=== PATIENT | female | born 1955 | race Caucasian/White ===

== ENCOUNTER 2019-04-26 12:14 | Observation (INO) ==
[2019-04-26] MEDS ORDERED: Prochlorperazine 10 MG/2 ML VIAL IVP ONE (12:24)
--- NOTE | 2019-04-26 12:56 | Emergency Department Note ---
Disposition Clinical Impression: Hypertension Qualifiers: Hypertension type: unspecified Qualified Code(s): I10 - Essential (primary) hypertension Headache Qualifiers: Headache type: unspecified Headache chronicity pattern: unspecified pattern Intractability: not intractable Qualified Code(s): R51 - Headache Chest pain Qualifiers: Chest pain type: unspecified Qualified Code(s): R07.9 - Chest pain, unspecified Disposition: Admitted As Inpatient Condition: Good Instructions: Hypertension (ED), General Headache (ED) [facility] - 04/27/19 Forms: ED Satisfaction Letter, Work/School Release Time of Disposition: 17:19 General Adult HPI - General Chief complaint: ED General Medical Stated complaint: hypertension Time Seen by Provider: 04/26/19 12:21 Source: patient, EMS Mode of arrival: EMS Limitations: no limitations Nursing Notes Reviewed: Yes Vital Signs Reviewed: Yes - History of Present Illness HPI Narrative: Patient is a 63-year-old female with past medical history including anxiety and hypertension, presenting with a chief complaint of elevated blood pressures. Patient states she is on multiple blood pressure medications and her hypertension is managed by her primary care physician. She states she had an appointment today however she did not have transportation to take her to her appointment. She states for the past 5 days she complains of intermittent generalized pounding headaches. She complains of occasional blurred vision and substernal chest pressure. She states the chest pain is substernal and radiates into her back and associated with shortness of breath. She states she has been taking her blood pressure every day and it has been elevated. She states today, her systolic blood pressure was elevated greater than 200. She complains of a headache, substernal chest pressure and blurred vision at this time. She denies any shortness of breath, nausea or vomiting, abdominal pain, extremity weakness or numbness, slurred speech, facial droop. Tylenol has not been helping her headache. Pain Scale: 7 - Related Data Home Medications Medication Instructions Recorded Confirmed Methocarbamol [Robaxin-750] 750 mg PO QID 05/13/16 07/16/16 Metoprolol [Lopressor] 25 mg PO BID 05/13/16 07/16/16 cloNIDine HCl [CloNIDine HCl] 0.1 mg PO BID 05/13/16 07/16/16 clonazePAM [Clonazepam] 1 mg PO TID 05/13/16 07/16/16 traMADol [Ultram] 100 mg PO TID 05/13/16 07/16/16 Previous Rx's Medication Instructions Recorded Aspirin 81 mg PO DAILY 30 Days tab.chew 05/15/16 Losartan [Cozaar] 100 mg PO DAILY #30 tablet 07/19/16 OxyCODONE/APAP 5/325 [Percocet 1 each PO Q6HR PRN #14 tablet 07/19/16 5/325 MG] hydrALAZINE [HydrALAZINE] 50 mg PO Q8HR #60 tablet 07/19/16 Naproxen [Naprosyn] 500 mg PO BID 3 Days tablet 07/24/16 predniSONE [PredniSONE] 5 mg PO DAILY 6 Days tablet 07/24/16 Benzonatate [Tessalon] 100 mg PO TID 7 Days capsule 01/24/17 Allergies Allergy/AdvReac Type Severity Reaction Status Date / Time ketorolac [From Toradol] Allergy Rash Verified 12/20/16 10:18 Penicillins [PCN] Allergy See Verified 07/16/16 17:30 Comments Sulfa (Sulfonamide Allergy See Verified 07/16/16 17:30 Antibiotics) Comments All systems ED: reviewed and negative except as stated. Review of Systems: As Per HPI Constitutional: Denies: fever, chills Eyes: Reports: vision change ENT ED: Denies: congestion Cardiovascular: Reports: chest pain. Denies: palpitations Respiratory: Denies: cough, dyspnea Gastrointestinal: Denies: abdominal pain, nausea, vomiting Genitourinary: Denies: dysuria Musculoskeletal: Denies: back pain Neurological: Reports: headache. Denies: weakness, numbness, paresthesias, confusion, abnormal gait Past Medical History - Past Medical History Attestation: Yes The following information was validated with the patient. Source: patient Medical history: Reports: hypertension Surgical history: Reports: hysterectomy, orthopedic, other, sinus surgery, other Psychiatric history: Reports: anxiety, depression, previous psychiatric hospitalization, other - Social History Smoking Status: Current every day smoker Smokeless Tobacco Status: No Alcohol use: Reports: occasionally Drug use: Reports: none Physical Exam - General Limitations: no limitations General appearance: alert, in no apparent distress - Head Head exam: atraumatic, normocephalic, normal inspection - Eye Eye exam: Present: normal appearance, EOMI - ENT ENT exam: normal exam, normal oropharynx - Neck Neck exam: Present: normal inspection, trachea midline - Chest Chest inspection: Present: normal inspection, symmetric chest wall rise - Respiratory Respiratory exam: Present: normal lung sounds bilaterally. Absent: respiratory distress, wheezes - Cardiovascular Cardiovascular exam: Present: regular rate, normal rhythm, normal heart sounds, other (bilateral radial pulses and dorsalis pedis pulses equal) - Abdominal Exam Abdominal exam: Present: soft, Non-Tender, normal bowel sounds. Absent: distention, guarding, rebound, rigidity - Extremities Exam Extremities exam: Present: normal capillary refill. Absent: pedal edema, calf tenderness - Neurological Exam Neurological exam: Present: alert, oriented X3, CN II-XII intact, normal gait. Absent: motor sensory deficit - Expanded Neurological Exam Speech: Present: fluid speech Cerebellar function: finger to nose: Normal Motor strength - LUE: 5/5 Motor strength - RUE: 5/5 Motor strength - LLE: 5/5 Motor strength - RLE: 5/5 Upper motor neuron exam: eulalia neglect: Absent bilaterally Sensory exam upper extremity: light touch: Normal Sensory exam lower extremity: light touch: Normal - Psychiatric Psychiatric exam: Present: normal affect, normal mood - Skin Skin exam: Present: warm, dry, diaphoresis. Absent: pallor Course Vital Signs Temperature 98.1 F 04/26/19 12:20 Pulse Rate 62 04/26/19 12:20 Respiratory Rate 16 04/26/19 12:20 Blood Pressure 178/102 04/26/19 12:20 O2 Sat by Pulse Oximetry 99 04/26/19 12:20 Temperature 98.1 F 04/26/19 12:20 Pulse Rate 60 04/26/19 16:25 Respiratory Rate 14 04/26/19 16:25 Blood Pressure 186/92 04/26/19 16:25 O2 Sat by Pulse Oximetry 100 04/26/19 16:25 Oxygen Delivery Oxygen Delivery Room Air Medical Decision Making - [facility] Narrative Medical decision making narrative: Patient's blood pressures are elevated with systolic 178. Heart rate is regular. EKG shows no acute ischemic changes. Normal neurologic examination. We will obtain CBC, BMP, troponin to evaluate for end organ damage. We will give her Compazine and Benadryl for her headache as she is allergic to Toradol and she states Tylenol has not been helping her headache. CT head will also be obtained as she is complaining of a headache and blurred vision. 14:00 Lab work reviewed. Troponin less than 0.03. BUN and creatinine are within normal limits. No electrolyte abnormality. Reevaluated the patient. She states her headache is improved however she is having chest pain radiating into her back. She states she has a family history of her father and father's side of aortic dissection. We will obtain CTA dissection to further evaluate. Blood pressure improved. 16:30 Patient states her headache is improved. No chest pain at this time however patient still complains of intermittent chest pain that is radiating into her back. CTA dissection study shows no aneurysm or dissection. CT head shows no acute intracranial abnormality. 16:50 Blood pressures remained elevated with systolic in the 180s. We will admit the patient for chest pain, ACS workup and hypertension. 17:20 Discussed with hospitalist, Dr. Haq who accepts admission. - Medical Records Medical records reviewed: Yes I reviewed the patient's medical records. - Lab Data Lab results reviewed: Yes I reviewed the patient's lab results. Result diagrams: 04/26/19 12:40 04/26/19 12:40 Lab Results 04/26/19 04/26/19 04/26/19 Range/Units 12:40 12:40 12:40 WBC 6.4 (4.3-11.1) K/mcL RBC 3.90 (3.82-4.97) M/mcL Hgb 12.6 (11.5-15.4) g/dL Hct 37.1 (35.3-44.9) % MCV 95.1 (83.0-100.0) fL MCH 32.3 (28.0-33.3) pg MCHC 34.0 (31.6-35.5) g/dL RDW 12.6 (11.5-14.5) % Plt Count 287 (140-400) K/mcL MPV 10.3 (9.4-12.4) fL Immature Gran % 0.3 (0-4) % Seg Neutrophils % 67.2 % Lymphocytes % 27.0 % Monocytes % 4.4 % Eosinophils % 0.6 % Basophils % 0.5 % Neutrophils # 4.3 (1.6-8.9) K/mcL Lymphocytes # 1.7 (0.6-4.6) K/mcL Monocytes # 0.3 (0.0-1.3) K/mcL Eosinophils # 0.0 (0.0-0.6) K/mcL Basophils # 0.0 (0.0-0.2) K/mcL Sodium 138 (136-145) mEq/L Potassium 3.7 (3.5-5.1) mEq/L Chloride 105 (98-107) mEq/L Carbon Dioxide 24 (23-29) mEq/L BUN 18 (8-23) mg/dL Creatinine 0.71 (0.60-1.20) mg/dL Est GFR ( Amer) > 60 (> 60) Est GFR (Non-Af Amer) > 60 (> 60) BUN/Creatinine Ratio 25 (6-26) Glucose 99 (70-105) mg/dL Calculated Osmolality 288 (280-300) Calcium 9.6 (8.6-10.3) mg/dL Troponin I < 0.03 (< 0.04) ng/mL B-Natriuretic Peptide 103 H (Less than 100) pg/mL - Radiology Data Radiology results reviewed: Yes I reviewed the patient's radiology results. Head CT 04/26/19 12:24 IMPRESSION: No acute intracranial abnormality. D/ / Venkat Shafer / Venkat Shafer Interpreting Provider: Venkat Shafer Dissection 04/26/19 14:06 IMPRESSION: 1. No evidence of aortic aneurysm dissection or other acute arterial abnormality. 2. No acute chest abnormalities. Mild emphysema. 3. No evidence of abdominal aortic aneurysm or dissection. No acute abdominal or pelvic abnormality. D/ / Madalyn Burciaga MD / Madalyn Burciaga MD Interpreting Provider: Madalyn Burciaga MD - EKG Data EKG #1 EKG attestation: Yes I reviewed and interpreted this EKG. EKG results narrative: EKG obtained at 1222 shows sinus rhythm with heart rate 57, RI interval 152, QRS duration 91, QTC 425, no ST elevation or depression compared to old EKG on 07/16/2016 which shows no new changes.
[2019-04-26 13:00] LABS: Basophils % 0.5 %; Eosinophils % 0.6 %; Hematocrit 37.1 % (35.3-44.9); Hemoglobin 12.6 g/dL (11.5-15.4); Immature Granulocytes % 0.3 % (0-4); Lymphocytes # 1.7 K/mcL (0.6-4.6); Mean Corpuscular Hemoglobin 32.3 pg (28.0-33.3); Mean Corpuscular Volume 95.1 fL (83.0-100.0); Mean Platelet Volume 10.3 fL (9.4-12.4); Monocytes # 0.3 K/mcL (0.0-1.3); Monocytes % 4.4 %; Neutrophils # 4.3 K/mcL (1.6-8.9); Platelet Count 287 K/mcL (140-400); Red Cell Distribution Width 12.6 % (11.5-14.5); Segmented Neutrophils % 67.2 %; White Blood Count 6.4 K/mcL (4.3-11.1)
[2019-04-26 13:26] LABS: BUN/Creatinine Ratio 25 (6-26); Blood Urea Nitrogen 18 mg/dL (8-23); Calcium 9.6 mg/dL (8.6-10.3); Carbon Dioxide 24 mEq/L (23-29); Chloride 105 mEq/L (98-107); Glucose 99 mg/dL (70-105); Osmolality,Calculated 288 (280-300); Potassium 3.7 mEq/L (3.5-5.1); Sodium 138 mEq/L (136-145); Troponin I < 0.03 ng/mL (< 0.04); eGFR For African Americans > 60 (> 60); eGFR For Non-African Americans > 60 (> 60)
[2019-04-26] MEDS ORDERED: Isovue-370 500 ML BOTTLE IVP ONE (14:06)
--- NOTE | 2019-04-26 17:28 | Electrocardiograph Report ---
[employer] Test Date: 2019-04-26 Pat Name: Quiana Moore Department: [id number] Room: [id number] Gender: F Hospital Personnel Director: : [id number] Requested By: Margie Hayden Order Number: [id number] Reading MD: Oseas Carbajal Measurements Intervals [place] Rate: 57 P: 70 UT: 152 QRS: -5 QRSD: 91 T: 58 QT: 436 QTc: 425 Interpretive Statements Sinus rhythm Consider left atrial enlargement Electronically Signed On 04-26-2019 17:27:06 EDT by Oseas Carbajal
[2019-04-26] MEDS ORDERED: *HR* HYDROcodone/Acet 5/325 mg TABLET PO PRN (17:59)
[2019-04-26] MEDS ORDERED: Ondansetron ODT 4 MG TAB.RAPDIS SL PRN (17:59)
[2019-04-26] MEDS ORDERED: Acetaminophen 325 MG TABLET PO PRN (17:59)
[2019-04-26] MEDS ORDERED: Naloxone 0.4 MG/ML INJ IVP PRN (17:59)
--- NOTE | 2019-04-26 18:11 | Internal Med History&Physical ---
Date of Encounter: 04/26/19 Time of Encounter: 18:08 Internal Medicine - H&P: HPI Chief complaint: elevtaed BP Admitted From: Emergency Dept Plans for Post Hospital Care: Home History of present illness: Ms. Moore is a 63 year old female past medical history anxiety hypertension who presented to [facility] ED with complaints of elevated blood pressure. Patient states she is on multiple blood pressure medications and that her primary care physician manages her pretension however she missed her appointment today because she did not have transportation. For the past 5 days patient has been experiencing intermittent generalized pounding headaches as well as occasional blurred vision and substernal chest pressure. Chest pressure midsternal radiating to her back with associated symptoms of shortness of breath. She is monitoring her blood pressure at home and systolic has been greater than 200. States that she would take her blood pressure medication as needed at times to help bring down her blood pressure. She had an appointment today with her primary care provider but was not able to go because she had no transportation. He was brought to the ER for evaluation. Upon presentation blood pressure was 189/105 patient's complaining of 5 out of 10 chest pain describing it as sharp pressure radiating into her back she underwent a CTA which was negative for dissection also complaining of headache [address] was negative for any intracranial abnormalities. Patient was medicated for her headache and has been admitted for further workup and evaluation. Currently on assessment patient's blood pressure is 168/[address]-T wave abnormalities. Patient is requesting something for her headache and chest pain. During assessment patient expressed frustration that her blood pressure has not been addressed as well as her chest pain and is requesting to leave AMA. I advised patient up on the risk of leaving AGAINST MEDICAL ADVICE including possible . Patient then decided to stay and be treated I did discuss CODE STATUS with the patient who verbalizes she would like to be a full code. Past Med Surg Social Fam HX - Past Medical History Medical history: hypertension Additional medical history: SPINAL STENOSIS, Psychiatric history: anxiety, depression, previous psychiatric hospitalization, other - Past Surgical History Surgical History: hysterectomy, orthopedic, other, sinus surgery, other Additional surgical history: ORTHO BACK x 3 - Social History Smoking Status: Current every day smoker Smokeless Tobacco Status: No Alcohol use: occasionally Drug use: none - Family History Mother Living Status: Hx Family Cardiac Disorders: Yes (heart failur ) Brother Living Status: Still Living Internal Medicine - H&P: Meds Metoprolol [Lopressor] 25 mg PO BID 05/13/16 [History] cloNIDine HCl [CloNIDine HCl] 0.1 mg PO BID 05/13/16 [History] traMADol [Ultram] 100 mg PO TID 05/13/16 [History] Aspirin 81 mg PO DAILY 30 Days tab.chew 05/15/16 [Rx] ALPRAZolam [Xanax 1 MG Tablet] 1 mg PO 04/26/19 [History] Losartan [Cozaar] mg PO DAILY 04/26/19 [History] Allergy/AdvReac Type Severity Reaction Status Date / Time ketorolac [From Toradol] Allergy Rash Verified 04/26/19 17:47 Penicillins [PCN] Allergy See Verified 04/26/19 17:47 Comments Sulfa (Sulfonamide Allergy See Verified 04/26/19 17:47 Antibiotics) Comments All Systems PM: A 10-system review of systems was performed and is negative for pertinent findings except as documented above in the HPI. - Constitutional Constitutional: no chills, no fever(s), no night sweats - EENT Eyes: no change in vision, no discharge, no pain, no photophobia Ears: no ear discharge, no ear pain, no tinnitus Nose, mouth and throat: no dysphagia, no nasal discharge, no neck pain, no sore throat - Cardiovascular Cardiovascular ROS IM: chest pain - Respiratory Respiratory: no cough, no dyspnea, no wheezing, no excessive phlegm production - Gastrointestinal Gastrointestinal: no abdominal pain, no diarrhea, no hematemesis, no hematochezia, no melena, no nausea, no vomiting - Genitourinary Genitourinary: no change in urinary stream, no dysuria, no flank pain, no hematuria - Musculoskeletal Musculoskeletal ROS IM: no numbness, no tingling - Integumentary Integumentary IM: no rash, no unusual bruising - Neurological Neurological ROS: headache(s), tingling - Hematologic/Lymphatic Hematologic/Lymphatic: no easy bruising - Constitutional Vitals: Temp Pulse Resp BP Pulse Ox 98.1 F 61 17 168/101 99 04/26/19 12:20 04/26/19 18:05 04/26/19 18:05 04/26/19 18:05 04/26/19 18:05 Exam: Skin: Free of rash and discoloration. Eyes: Sclera is white. There is no discharge from eyes. ENMT: Oral/pharyngeal mucosa is normal in appearance. There is no discharge fr om nose or ears. Respiratory: Normal breath sounds with no crackles and wheezes bilaterally. CV: Heart is regular with no gallop or murmur. GI: Abdomen is flat and soft with no palpable mass or visceromegaly. : There is no tenderness in patient's flanks bilaterally. Neuro exam: He has good strength in upper and lower extremities. He has normal eye movements. Psychiatric: He has normal affect. His thought process is appropriate to the situation. Internal Med - H&P Results - Labs CBC & Chem 7: 04/26/19 12:40 04/26/19 12:40 Labs: Short CBC 04/26/19 Range/Units 12:40 WBC 6.4 (4.3-11.1) K/mcL Hgb 12.6 (11.5-15.4) g/dL Hct 37.1 (35.3-44.9) % Plt Count 287 (140-400) K/mcL Neutrophils # 4.3 (1.6-8.9) K/mcL BMP 04/26/19 12:40 Sodium 138 Potassium 3.7 Chloride 105 Carbon Dioxide 24 BUN 18 Creatinine 0.71 Glucose 99 Calcium 9.6 Cardiac Enzymes 04/26/19 Range/Units 12:40 Troponin I < 0.03 (< 0.04) ng/mL - Impressions ITS Impressions Head CT 04/26/19 12:24 IMPRESSION: No acute intracranial abnormality. D/ / Venkat Shafer / Venkat Shafer Interpreting Provider: Venkat Shafer Dissection 04/26/19 14:06 IMPRESSION: 1. No evidence of aortic aneurysm dissection or other acute arterial abnormality. 2. No acute chest abnormalities. Mild emphysema. 3. No evidence of abdominal aortic aneurysm or dissection. No acute abdominal or pelvic abnormality. D/ / 04/26/2019 16:53:46 Madalyn Burciaga MD / Zaira Hall Interpreting Provider: Madalyn Burciaga MD - Assessment and Plan (1) Accelerated essential hypertension Current Visit: No Status: Acute Assessment and plan: suspect rt poor compliance-to states that she has not seen her physician in some time that she has had elevated blood pressure past 3 days states that she has been taking medications as needed as well as scheduled to bring down blood pressure Currently complains of chest pain as well as of headache states her systolic blood pressure has been greater than 200 at times. On presentation patient's systolic blood pressure was 180 We will continue with home medications Hydralazine as needed for systolic greater than 180 (2) DVT prophylaxis Current Visit: Yes Status: Acute Assessment and plan: Heparin subcutaneous (3) Chest pain Current Visit: Yes Status: Acute Assessment and plan: Most likely secondary to uncontrolled hypertension-we will resume home medications Continuous cardiac monitoring Troponin was negative continue trend troponin Continue with aspirin and beta jose Obtain cardiac echo Nothing by mouth after midnight May consider stress test in a.m. day team to reevaluate Nitroglycerin as needed Morphine as needed Qualifiers: Chest pain type: unspecified Qualified Code(s): R07.9 - Chest pain, unspecified (4) Headache Current Visit: Yes Status: Acute Assessment and plan: Secondary to hypertension CT of head was negative-describes pain as throbbing encircling her head no photophobia no nausea no vomiting no focal deficits Continue with pain medication-maintain blood pressure control Qualifiers: Headache type: unspecified Headache chronicity pattern: unspecified pattern Intractability: not intractable Qualified Code(s): R51 - Headache (5) Hypertension Current Visit: Yes Status: Acute Assessment and plan: Patient has a long-standing history of hypertension -she missed the doctor appointment today concerning her hypertension We will continue with home medications Qualifiers: Hypertension type: unspecified Qualified Code(s): I10 - Essential (primary) hypertension - Time Spent With Patient Total time spent is greater than 50% in coordination of care (as documented) at patient's floor/unit and/or counseling patient:
--- NOTE | 2019-04-26 18:25 | Emergency Department Note ---
Disposition Clinical Impression: Hypertension Qualifiers: Hypertension type: unspecified Qualified Code(s): I10 - Essential (primary) hypertension Headache Qualifiers: Headache type: unspecified Headache chronicity pattern: unspecified pattern Intractability: not intractable Qualified Code(s): R51 - Headache Chest pain Qualifiers: Chest pain type: unspecified Qualified Code(s): R07.9 - Chest pain, unspecified Disposition: Admitted As Inpatient Condition: Good Time of Disposition: 17:19 General Adult HPI - General Chief complaint: ED General Medical Stated complaint: hypertension Time Seen by Provider: 04/26/19 12:21 Source: patient, EMS Mode of arrival: EMS Limitations: no limitations - History of Present Illness Pain Scale: 2 - Related Data Home Medications Medication Instructions Recorded Confirmed Metoprolol [Lopressor] 25 mg PO BID 05/13/16 04/26/19 cloNIDine HCl [CloNIDine HCl] 0.1 mg PO BID 05/13/16 04/26/19 traMADol [Ultram] 100 mg PO TID 05/13/16 04/26/19 ALPRAZolam [Xanax 1 MG Tablet] 1 mg PO 04/26/19 Losartan [Cozaar] mg PO DAILY 04/26/19 Previous Rx's Medication Instructions Recorded Aspirin 81 mg PO DAILY 30 Days tab.chew 05/15/16 Allergies Allergy/AdvReac Type Severity Reaction Status Date / Time ketorolac [From Toradol] Allergy Rash Verified 04/26/19 17:47 Penicillins [PCN] Allergy See Verified 04/26/19 17:47 Comments Sulfa (Sulfonamide Allergy See Verified 04/26/19 17:47 Antibiotics) Comments Constitutional: Denies: fever, chills Eyes: Reports: vision change ENT ED: Denies: congestion Cardiovascular: Reports: chest pain. Denies: palpitations Respiratory: Denies: cough, dyspnea Gastrointestinal: Denies: abdominal pain, nausea, vomiting Genitourinary: Denies: dysuria Musculoskeletal: Denies: back pain Neurological: Reports: headache. Denies: weakness, numbness, paresthesias, c onfusion, abnormal gait Past Medical History - Past Medical History Medical history: Reports: hypertension Surgical history: Reports: hysterectomy, orthopedic, other, sinus surgery, other Psychiatric history: Reports: anxiety, depression, previous psychiatric hospitalization, other - Social History Smoking Status: Current every day smoker Smokeless Tobacco Status: No Alcohol use: Reports: occasionally Drug use: Reports: none Physical Exam - General Limitations: no limitations General appearance: alert, in no apparent distress Course Vital Signs Temperature 98.1 F 04/26/19 12:20 Pulse Rate 62 04/26/19 12:20 Respiratory Rate 16 04/26/19 12:20 Blood Pressure 178/102 04/26/19 12:20 O2 Sat by Pulse Oximetry 99 04/26/19 12:20 Temperature 98.0 F 04/27/19 00:25 Pulse Rate 68 04/27/19 00:25 Respiratory Rate 18 04/27/19 00:25 Blood Pressure 132/82 04/27/19 00:27 O2 Sat by Pulse Oximetry 96 04/27/19 00:25 Oxygen Delivery Oxygen Delivery Room Air Medical Decision Making - Lab Data Result diagrams: 04/27/19 00:47 04/27/19 00:47 Lab Results 04/26/19 04/26/19 04/26/19 Range/Units 12:40 12:40 12:40 WBC 6.4 (4.3-11.1) K/mcL RBC 3.90 (3.82-4.97) M/mcL Hgb 12.6 (11.5-15.4) g/dL Hct 37.1 (35.3-44.9) % MCV 95.1 (83.0-100.0) fL MCH 32.3 (28.0-33.3) pg MCHC 34.0 (31.6-35.5) g/dL RDW 12.6 (11.5-14.5) % Plt Count 287 (140-400) K/mcL MPV 10.3 (9.4-12.4) fL Immature Gran % 0.3 (0-4) % Seg Neutrophils % 67.2 % Lymphocytes % 27.0 % Monocytes % 4.4 % Eosinophils % 0.6 % Basophils % 0.5 % Neutrophils # 4.3 (1.6-8.9) K/mcL Lymphocytes # 1.7 (0.6-4.6) K/mcL Monocytes # 0.3 (0.0-1.3) K/mcL Eosinophils # 0.0 (0.0-0.6) K/mcL Basophils # 0.0 (0.0-0.2) K/mcL Sodium 138 (136-145) mEq/L Potassium 3.7 (3.5-5.1) mEq/L Chloride 105 (98-107) mEq/L Carbon Dioxide 24 (23-29) mEq/L BUN 18 (8-23) mg/dL Creatinine 0.71 (0.60-1.20) mg/dL Est GFR ( Amer) > 60 (> 60) Est GFR (Non-Af Amer) > 60 (> 60) BUN/Creatinine Ratio 25 (6-26) Glucose 99 (70-105) mg/dL Calculated Osmolality 288 (280-300) Calcium 9.6 (8.6-10.3) mg/dL Troponin I < 0.03 (< 0.04) ng/mL B-Natriuretic Peptide 103 H (Less than 100) pg/mL Attestation Statement - Attestation Attestation: I examined this patient and my medical decision-making was reviewed with the Resident Physician. I agree with the documented findings, disposition and treatment plan as described except to the extent set forth below. This 61-year-old female presents with chief complaint of chest discomfort and also hypertension. The patient physical exam shows no acute focal findings except for the patient being moderately anxious in the ER Medical decision management patient been observed in the emergency department evaluated for possible dissection this was negative. The patient has continued to have episodes of intermittent chest discomfort with the elevated blood pressures was felt the patient will be best served to observe the patient the case was discussed with the hospitalist service the patient is admitted for observation
[2019-04-26] MEDS ORDERED: Morphine Sulfate 2 MG/ML SYRINGE IVP PRN (19:33)
[2019-04-26] MEDS: cloNIDine HCl 0.1 MG TABLET PO SCH (20:38)
[2019-04-26] MEDS: traMADol 50 MG TABLET PO SCH (20:42)
[2019-04-27 01:16] LABS: Basophils % 0.5 %; Eosinophils # 0.1 K/mcL (0.0-0.6); Eosinophils % 1.3 %; Hematocrit 39.5 % (35.3-44.9); Hemoglobin 13.2 g/dL (11.5-15.4); Immature Granulocytes % 0.3 % (0-4); Lymphocytes # 2.6 K/mcL (0.6-4.6); Lymphocytes % 34.7 %; Mean Corpuscular HGB Conc 33.4 g/dL (31.6-35.5); Mean Corpuscular Hemoglobin 32.4 pg (28.0-33.3); Mean Corpuscular Volume 96.8 fL (83.0-100.0); Mean Platelet Volume 10.2 fL (9.4-12.4); Monocytes # 0.5 K/mcL (0.0-1.3); Monocytes % 6.5 %; Neutrophils # 4.3 K/mcL (1.6-8.9); Platelet Count 291 K/mcL (140-400); Red Blood Count 4.08 M/mcL (3.82-4.97); Red Cell Distribution Width 12.7 % (11.5-14.5); Segmented Neutrophils % 56.7 %; White Blood Count 7.6 K/mcL (4.3-11.1)
[2019-04-27 01:34] LABS: BUN/Creatinine Ratio 18 (6-26); Blood Urea Nitrogen 17 mg/dL (8-23); Calcium 9.5 mg/dL (8.6-10.3); Carbon Dioxide 27 mEq/L (23-29); Chloride 106 mEq/L (98-107); Chol/HDL Ratio 3.2 (0-4.9); Cholesterol 298 mg/dL (< 200); Glucose 119 mg/dL (70-105); HDL Cholesterol 92 mg/dL (40-59); LDL Cholesterol,Calculated 190 mg/dL (0-99); Osmolality,Calculated 295 (280-300); Potassium 3.5 mEq/L (3.5-5.1); Sodium 141 mEq/L (136-145); Triglycerides 80 mg/dL (< 150); eGFR For African Americans > 60 (> 60); eGFR For Non-African Americans > 60 (> 60)
[2019-04-27] MEDS ORDERED: *HR* Heparin 5,000 UNIT/ML VIAL SQ SCH (06:00)
[2019-04-27 07:36] VITALS: BP 147/94
[2019-04-27] MEDS: traMADol 50 MG TABLET PO SCH ×2 (07:54→15:51)
[2019-04-27] MEDS: cloNIDine HCl 0.1 MG TABLET PO SCH (07:54)
[2019-04-27] MEDS ORDERED: Aspirin 81 MG TAB.CHEW PO SCH (09:00)
[2019-04-27] MEDS ORDERED: Regadenoson 0.4 MG/5 ML SYRINGE IVP ONE (11:28)
--- NOTE | 2019-04-27 15:17 | Discharge Summary ---
- NOTES TO OUTPATIENT PROVIDER Notes to Outpatient Provider: Follow-up on her blood pressure reading at home. Orders not resulted at time of discharge: Pending orders 04/27/19 06:00 ECG 12 lead ECG [ECG] AM 0600 04/27/19 10:41 NM isaak perf SPECT multi [NM] Routine Date of Encounter: 04/27/19 Time of Encounter: 09:05 - Discharge Diagnosis (1) Accelerated essential hypertension Priority: Primary Status: Acute (2) Hypertension Priority: Secondary Status: Acute Qualifiers: Hypertension type: essential hypertension Qualified Code(s): I10 - Essential (primary) hypertension (3) Headache Priority: Secondary Status: Chronic Qualifiers: Headache type: unspecified Headache chronicity pattern: unspecified pattern Intractability: not intractable Qualified Code(s): R51 - Headache (4) Chest pain Priority: Secondary Status: Acute Qualifiers: Chest pain type: unspecified Qualified Code(s): R07.9 - Chest pain, unspecified (5) DVT prophylaxis Priority: Secondary Status: Acute Hospital course: Ms. Moore is a 63 year old female with history of anxiety, HTN. Medication noncompliance who came into the hospital regarding her accelerated hypertension and unspecified substernal chest pain. Patient was placed on her same home antihypertensive medication with good control of her blood pressure. Patient does not know her medication names and doses a lot and sometimes she misses her appointments with her family doctor. I encouraged her to continue taking the same medications and document her morning blood pressure before her next visit to her primary care doctor. Regarding her chest pain. EKG did not reveal any ischemic changes. Troponin was negative 2. Stress test was negative for any active ischemia. Patient will be discharged home in stable condition. Discharge discussed with: patient - Time Spent with Patient Total time spent providing and/or coordinating discharge services: 35MINUTE - Discharge Medications Prescriptions: Continued cloNIDine HCl [CloNIDine HCl] 0.1 mg PO BID traMADol [Ultram] 100 mg PO TID Metoprolol [Lopressor] 25 mg PO BID Aspirin 81 mg PO DAILY 30 Days tab.chew Losartan [Cozaar] mg PO DAILY ALPRAZolam [Xanax 1 MG Tablet] 1 mg PO Home Medications: Metoprolol [Lopressor] 25 mg PO BID 05/13/16 [History] cloNIDine HCl [CloNIDine HCl] 0.1 mg PO BID 05/13/16 [History] traMADol [Ultram] 100 mg PO TID 05/13/16 [History] Aspirin 81 mg PO DAILY 30 Days tab.chew 05/15/16 [Rx] ALPRAZolam [Xanax 1 MG Tablet] 1 mg PO 04/26/19 [History] Losartan [Cozaar] mg PO DAILY 04/26/19 [History] Allergies/Adverse Reactions: Allergy/AdvReac Type Severity Reaction Status Date / Time ketorolac [From Toradol] Allergy Rash Verified 04/26/19 17:47 Penicillins [PCN] Allergy See Verified 04/26/19 17:47 Comments Sulfa (Sulfonamide Allergy See Verified 04/26/19 17:47 Antibiotics) Comments Date of admission: 04/26/19 17:24 Primary care physician: [facility] Consults: 04/27/19 06:03 Consult to [facility] [CONS] Routine Reason for SW Consult: Pt has no ride home and is requesting a voucher for a cab to take her home. Pt has no money for cab. - Constitutional Vitals: Temp Pulse Resp BP Pulse Ox 98.4 F 69 16 147/94 96 04/27/19 07:32 04/27/19 07:32 04/27/19 07:32 04/27/19 07:32 04/27/19 07:32 Exam: Skin: Free of rash and discoloration. Eyes: Sclera is white. There is no discharge from eyes. ENMT: Oral/pharyngeal mucosa is normal in appearance. There is no discharge from nose or ears. Respiratory: Normal breath sounds with no crackles and wheezes bilaterally. CV: Heart is regular with no gallop or murmur. GI: Abdomen is flat and soft with no palpable mass or visceromegaly. : There is no tenderness in patient's flanks bilaterally. Neuro exam: He has good strength in upper and lower extremities. He has normal eye movements. Psychiatric: He has normal affect. His thought process is appropriate to the situation. - Patient Status Disposition: Home, Self-Care Condition: Good Functional capacity at discharge: independent ambulation Overall status at discharge: patient is back to baseline - Discharge Instructions Instructions: Chest Pain (DC), Chronic Hypertension (DC) Follow Up With: [facility] [Primary Care Provider] - - Diet and Activity Activity: resume usual activities as tolerated Diet: low salt diet
== END 2019-04-27 16:37 | disposition home or self-care (01) ==
LOC: EMEROOARM 12:14 → 2NENU 12:14 → SUATTDRO 17:24 → 2NENU 19:52
PROVIDERS: ADMIT Internal Medicine; ATTEND Internal Medicine